=== PATIENT | female | born 1990 | race Caucasian/White ===

== ENCOUNTER 2018-05-31 23:07 | Emergency (ER) | payer OTHER ==
[~2018-05-31] VITALS: Ht 157.5 cm; Wt 85.8 kg
[~2018-05-31 23:07] MED LIST: AMOX500C2 PO; CETI10CA PO; FLUT16SP17 NASAL; IBUP800T48 PO
[2018-05-31 23:53] VITALS: Ht 157.5 cm; Wt 85.8 kg
--- NOTE | 2018-06-01 01:56 | ERD ---
ER Documentation Chief Complaint Chief Complaint Pt reports she cut L index finger at 1700 HPI 28-year-old female, right-handed, presents the emergency department, complaining of pain and active bleeding of the left index finger after sustaining an accidental self-inflicted laceration while cooking. The patient denies distal weakness, numbness or tingling. Tetanus vaccine up-to-date. ROS All systems reviewed and are negative except as per history of present illness. Medications Home Meds Active Scripts Ibuprofen* (Motrin*) 400 Mg Tab, 400 MG PO Q8, #12 TAB Prov:SAHRA CONROY MD 06/01/18 Cephalexin* (Keflex*) 500 Mg Capsule, 500 MG PO TID for 5 Days, CAP Prov:SAHRA CONROY MD 06/01/18 Cetirizine Hcl* (Zyrtec*) 10 Mg Capsule, 10 MG PO DAILY for seasonal allergies, #10 TAB.CHEW Prov:OLEG MORALES NP 05/02/18 Fluticasone Propionate* (Fluticasone Propionate* Nasal) 50 Mcg/[place] - 16 Gm [place].susp, 2 SPRAYS NASAL DAILY, #1 BOTTLE TO EACH NOSTRIL Prov:OLEG MORALES V CLOTH DOFFER 05/02/18 Ibuprofen* (Motrin*) 800 Mg Tab, 800 MG PO Q8 PRN for fever/pain, #30 TAB Prov:OLEG MORALES V CLOTH DOFFER 05/02/18 Amoxicillin* (Amoxicillin*) 500 Mg Cap, 500 MG PO TID for 10 Days, CAP Prov:OLEG MORALES NP 05/02/18 Allergies Allergies: Coded Allergies: No Known Allergy (Unverified , 05/02/18) PMhx/Soc History of Surgery: Yes Anesthesia Reaction: No Hx Neurological Disorder: No Hx Respiratory Disorders: Yes Hx Cardiac Disorders: No Hx Psychiatric Problems: No Hx Miscellaneous Medical Probl: Yes (nasal problem ) Hx Alcohol Use: No Hx Substance Use: No Hx Tobacco Use: No Smoking Status: Never smoker FmHx Family History: No diabetes, No coronary disease Physical Exam Vitals Vital Signs Date Temp Pulse Resp B/P (MAP) Pulse Ox O2 O2 Flow FiO2 Time Delivery Rate 05/31/18 98.3 63 16 112/66 100 23:53 (81) Physical Exam Const: No acute distress Head: Atraumatic Eyes: Normal Conjunctiva ENT: Normal External Ears, Nose and Mouth. Neck: Full range of motion. No meningismus. Resp: Clear to auscultation bilaterally Cardio: Regular rate and rhythm, no murmurs Abd: Soft, non tender, non distended. Normal bowel sounds Skin: Left index with a 1 cm laceration of the distal phalanx. Back: No midline or flank tenderness Ext: No cyanosis, or edema Neur: Awake and alert Psych: Normal Mood and Affect Procedures/MDM Vital signs stable, low suspicion for tendon injury, open fracture, foreign body. Neurovascular exam intact. Procedure: Laceration repair The procedure was explained and consent obtained. Anesthesia: none Location: Left index Tendon/Joint/Nerves: No injury Foreign body: None detected after copious irrigation and exploration Technique: Tissue adhesive Complexity: No subcutaneous sutures/mucosal repair/edge excision Post Closure Length: 1 cm The patient tolerated the procedure well without complications. clinical impression and possible complications like infection and a scar where discussed with the the patient who agree with management. The patient is stable to be treated outpatient and will be discharged home with a Rx for Tylenol, some side effects of prescribed medications (headache, rash, nausea, vomiting, diarrhea, interactions with other medications) were reviewed. The patient was instructed to follow up with the primary care provider in the next 48h. If symptoms persist, worsen or new symptoms develop, then patient should return to the ED immediately. Instructions explained and given directly by me to the patient with acknowledgment and demonstrated understanding. Disclaimer: Inadvertent spelling and grammatical errors are likely due to EHR/dictation software use and do not reflect on the overall quality of patient care. Also, please note that the electronic time recorded on this note does not necessarily reflect the actual time of the patient encounter. Departure Diagnosis: Primary Impression: Laceration of index finger of left hand without complication Condition: Stable Additional Instructions: Thank you very much for allowing us to participate in your care. Your health and safety is our top priority at [facility]. Call your primary care doctor TOMORROW for an appointment during the next 2-4 days and bring all the information and medications prescribed. Have prescriptions filled and follow precisely the directions on the label. If the symptoms get worse and your provider is unavailable, return to the Emergency Department immediately. SAHRA CONROY MD Jun 01, 2018 01:56
[2018-06-01] MEDS ORDERED: IBUP-1561 PO (01:57)
[2018-06-01] MEDS ORDERED: CEPH-443 PO (01:57)
[2018-06-01 02:09] VITALS: BP 100/65; PULSE 68; RESP 18
== END 2018-06-01 02:11 | disposition home or self-care (01) ==
LOC: FTE 23:07
DX: S61.211A Laceration without foreign body of left index finger without damage to nail, initial encounter (principal); X83.8XXA Intentional self-harm by other specified means, initial encounter; Y92.9 Unspecified place or not applicable
CPT/HCPCS: 12001; Z7502

== ENCOUNTER 2018-08-29 14:47 | Inpatient (IN) | payer OTHER ==
[~2018-08-29] VITALS: Ht 154.9 cm; Wt 93.1 kg
[2018-08-29] VITALS (14 sets, daily range): BP systolic 108–122; BP diastolic 64–72; PULSE 50–59; RESP 13–24
[~2018-08-29 14:47] MED LIST changes: +CEPH-443 PO; +IBUP-1561 PO
[2018-08-29] MEDS ORDERED: KETOROLAC 15 MG INJ IV STA (15:59)
[2018-08-29] MEDS ORDERED: SOD CHLORIDE 0.9% 1,000 ML IV STA (15:59)
[2018-08-29] MEDS ORDERED: ONDANSETRON 4 MG INJ IV STA (15:59)
[2018-08-29] MEDS ORDERED: SOD CHLORIDE 0.9% 100 ML ONE (16:56)
[2018-08-29] MEDS ORDERED: IOHEXOL 300MG/ML 150 ML BTL ONE (16:56)
[2018-08-29] MEDS ORDERED: morphine 2 MG INJ IV STA (18:21)
[2018-08-29] MEDS ORDERED: SOD CHLORIDE 0.9% 1,000 ML IV SCH (18:27)
[2018-08-29] MEDS ORDERED: PIPER-TAZO 3.375 GM IV (PMX) 100 ML IVPB ONE (18:30)
[2018-08-29] MEDS ORDERED: NACL 0.9% 3 ML SYG IV SCH (18:30)
[2018-08-29] MEDS ORDERED: morphine 2 MG INJ IV PRN (18:30)
[2018-08-29] MEDS ORDERED: ONDANSETRON 4 MG INJ IV PRN ×3 (18:30→22:30)
--- NOTE | 2018-08-29 18:43 | HP ---
Date/Time of Note Date/Time of Note DATE: 08/29/18 TIME: 18:43 Assessment/Plan VTE Prophylaxis Pharmacological prophylaxis: other Lines/Catheters IV Catheter Type (from Nrs): Saline Lock Assessment/Plan Hospital Course HPI Patient is a female with a past medical history significant for chronic sinusitis and childhood asthma who does not rely on inhalers who presents to [facility] for abdominal pain. Patient states that she had progressively worsening abdominal pain that was located primarily in the right lower quadrant for the past 2 days. Patient stated she came in now because the pain did not get better as she would have expected. Patient otherwise only complains of headache. Patient denies chest pain, shortness of breath, neck pain, dizziness, bowel or bladder dysfunction except for some mild constipation or leg pain. Objective Physical exam General: Patient is laying in bed and answers questions appropriately Mentation: Patient is alert and oriented 4, Head: Normocephalic atraumatic Eyes: EOMI, pupils reactive to light Neck: Supple, nontender, midline Respiratory: Clear to auscultation bilaterally Cardiovascular: regular rate, no obvious murmurs Gastrointestinal: Right lower quadrant tender to palpation, bowel sounds heard. Neurological: Moves all extremities spontaneously Skin: No new skin lesions Assessment and plan Acute appendicitis -IV fluid -General surgeon on board, Dr. Hatfield -IV antibiotic -Anticipate surgery soon History of asthma -Patient has a childhood history of asthma, does not rely on albuterol inhaler, however to optimize patient will have DuoNeb ordered as needed and scheduled for now Chronic sinusitis -Patient chronically on Flonase, of note the patient does not breathe well through the nasal passages so nasal cannula may not be the best choice for her, patient states that she is a mouth breather Disposition -General surgery recommendations appreciated, continue IV fluid and IV antibiotic, keep patient n.p.o. Result Diagram: 08/29/18 1614 08/29/18 1614 Results 24hrs Laboratory Tests Test 08/29/18 16:14 08/29/18 16:18 White Blood Count 9.7 Red Blood Count 4.68 # Hemoglobin 14.2 # Hematocrit 40.5 # Mean Corpuscular Volume 86.5 Mean Corpuscular Hemoglobin 30.3 Mean Corpuscular Hemoglobin Concent 35.1 Red Cell Distribution Width 12.5 Platelet Count 113 L Mean Platelet Volume 13.3 H Immature Granulocytes % 0.200 Neutrophils % 66.8 Lymphocytes % 23.7 Monocytes % 4.3 Eosinophils % 4.5 Basophils % 0.5 Nucleated Red Blood Cells % 0.0 Immature Granulocytes # 0.020 Neutrophils # 6.5 Lymphocytes # 2.3 Monocytes # 0.4 Eosinophils # 0.4 Basophils # 0.1 Nucleated Red Blood Cells # 0.0 Prothrombin Time 12.9 Prothrombin Time Ratio 1.0 INR International Normalized Ratio 0.96 Activated Partial Thromboplast Time 34.6 Urine Color YELLOW Urine Clarity SLIGHTLY CLOUDY A Urine pH 5.0 Urine Specific [place] 1.027 Urine Ketones TRACE A Urine Nitrite NEGATIVE Urine Bilirubin NEGATIVE Urine Urobilinogen 1+ H Urine Leukocyte Esterase NEGATIVE Urine Microscopic RBC 1 Urine Microscopic WBC 2 Urine Squamous Epithelial Cells FEW Urine Bacteria FEW A Urine Mucus FEW A Urine Hemoglobin NEGATIVE Urine Glucose NEGATIVE Urine Total Protein NEGATIVE Sodium Level 143 Potassium Level 4.0 Chloride Level 105 Carbon Dioxide Level 30 Anion Gap 8 Blood Urea Nitrogen 13 Creatinine 0.77 Est Glomerular Filtrat Rate mL/min > 60 Glucose Level 110 Calcium Level 9.6 Total Bilirubin 0.9 Direct Bilirubin 0.00 Indirect Bilirubin 0.9 Aspartate Amino Transf (AST/SGOT) 18 Alanine Aminotransferase (ALT/SGPT) 28 Alkaline Phosphatase 71 Total Protein 7.9 Albumin 4.2 Globulin 3.70 H Albumin/Globulin Ratio 1.13 Lipase 96 POC Beta HCG, Qualitative NEGATIVE HPI/ROS Admit Date/Time Admit Date/Time PMH/Family/Social Past Medical History Medications Current Medications Piperacillin Sod/ Tazobactam Sod 100 ml @ 200 mls/hr Q6 IVPB ; Start 08/30/18 at 00:00 Sodium Chloride 1,000 ml @ 100 mls/hr Q10H IV ; Start 08/29/18 at 18:27 IV Flush (NS 3 ml) 3 ml PER PROTOCOL IV ; Start 08/29/18 at 18:30 Ondansetron HCl (Zofran Inj) 4 mg Q6H PRN IV NAUSEA/VOMITING; Start 08/29/18 at 18:30 Morphine Sulfate (morphine) 2 mg Q4H PRN IV .PAIN 7-10; Start 08/29/18 at 18:30 Famotidine (Pepcid Iv) 20 mg Q12 IV ; Start 08/29/18 at 21:00 Albuterol/ Ipratropium (Duoneb) 3 ml Q6HWA RESP THERAPY N ; Start 08/29/18 at 20:00; Status UNV Albuterol/ Ipratropium (Duoneb) 3 ml Q2H RESP THERAPY PRN HHN shortness of breath; Start 08/29/18 at 19:00; Status UNV Fluticasone Propionate (Flonase 0.05% Nasal) 1 spray BID NASAL ; Start 08/29/18 at 21:00; Status UNV Coded Allergies: No Known Allergy (Unverified , 05/02/18) Social History Smoking Status: Never smoker Exam/Review of Systems Vital Signs Vitals Vital Signs Date Temp Pulse Resp B/P (MAP) Pulse Ox O2 O2 Flow FiO2 Time Delivery Rate 08/29/18 97.9 88 20 119/62 98 14:52 (81) THU TOWNSEND Aug 29, 2018 18:43
[2018-08-29] MEDS ORDERED: ALBUTEROL/IPRATROPIUM (NEB) 3 ML AMP HHN PRN (19:00)
[2018-08-29] MEDS ORDERED: ALBUTEROL/IPRATROPIUM (NEB) 3 ML AMP HHN SCH (20:00)
--- NOTE | 2018-08-29 20:07 | CONS ---
Assessment/Plan Assessment/Plan Assessment/Plan (Daily) acute appendicitis no sign of rupture NPO , IV fluids , IV antibiotics Lap Appy , risks ,details of procedure discussed with patient . including possible infection , bleeding , anesthesia issues , Patient wishes to proceed . OR called Consultation Date/Type/Reason Admit Date/Time Date of Consultation: Aug 29, 2018 Type of Consult surgical consult Reason for Consultation abdominal pain , suspicious for appendicitis Date/Time of Note DATE: 08/29/18 TIME: 19:58 Hx of Present Illness patient with past history of Asthma , presented to ER with worsening abdominal pain , migrated to the right right lower quadrant . Patient denies any similar episodes. Pain started two days ago and got worse .Denies other issues except low platelets during delivery . No problems with bleeding . Past Medical History Home Meds Active Scripts Ibuprofen* (Motrin*) 400 Mg Tab, 400 MG PO Q8, #12 TAB Prov:SAHRA CONROY MD 06/01/18 Cephalexin* (Keflex*) 500 Mg Capsule, 500 MG PO TID for 5 Days, CAP Prov:SAHRA CONROY MD 06/01/18 Cetirizine Hcl* (Zyrtec*) 10 Mg Capsule, 10 MG PO DAILY for seasonal allergies, #10 TAB.CHEW Prov:OLEG MORALES NP 05/02/18 Fluticasone Propionate* (Fluticasone Propionate* Nasal) 50 Mcg/[place] - 16 Gm [place].susp, 2 SPRAYS NASAL DAILY, #1 BOTTLE TO EACH NOSTRIL Prov:LOEG MORALES NP 05/02/18 Ibuprofen* (Motrin*) 800 Mg Tab, 800 MG PO Q8 PRN for fever/pain, #30 TAB Prov:OLEG MORALES NP 05/02/18 Amoxicillin* (Amoxicillin*) 500 Mg Cap, 500 MG PO TID for 10 Days, CAP Prov:OLEG MORALES NP 05/02/18 Medications Current Medications Piperacillin Sod/ Tazobactam Sod 100 ml @ 200 mls/hr Q6 IVPB ; Start 08/30/18 at 00:00 Sodium Chloride 1,000 ml @ 100 mls/hr Q10H IV Last administered on 08/29/18at 19:28; Admin Dose 100 MLS/HR; Start 08/29/18 at 18:27 IV Flush (NS 3 ml) 3 ml PER PROTOCOL IV ; Start 08/29/18 at 18:30 Ondansetron HCl (Zofran Inj) 4 mg Q6H PRN IV NAUSEA/VOMITING; Start 08/29/18 at 18:30 Morphine Sulfate (morphine) 2 mg Q4H PRN IV .PAIN 7-10; Start 08/29/18 at 18:30 Famotidine (Pepcid Iv) 20 mg Q12 IV ; Start 08/29/18 at 21:00 Albuterol/ Ipratropium (Duoneb) 3 ml Q6HWA RESP THERAPY HHN ; Start 08/29/18 at 20:00 Albuterol/ Ipratropium (Duoneb) 3 ml Q2H RESP THERAPY PRN HHN shortness of breath; Start 08/29/18 at 19:00 Fluticasone Propionate (Flonase 0.05% Nasal) 1 spray BID NASAL ; Start 08/29/18 at 21:00 Allergies: Coded Allergies: No Known Allergy (Unverified , 05/02/18) Social History Smoking Status: Current every day smoker Exam/Review of Systems Exam Vitals Vital Signs Date Temp Pulse Resp B/P (MAP) Pulse Ox O2 O2 Flow FiO2 Time Delivery Rate 08/29/18 98.5 71 16 119/68 98 Room Air 19:01 (85) Exam Awake Lungs Clear Cor Reg rate , normal S1S2 Abd soft , tender RLQ , nondistended . Results Result Diagram: 08/29/18 1614 08/29/18 1614 Results 24hrs Laboratory Tests Test 08/29/18 16:14 08/29/18 16:18 White Blood Count 9.7 Red Blood Count 4.68 # Hemoglobin 14.2 # Hematocrit 40.5 # Mean Corpuscular Volume 86.5 Mean Corpuscular Hemoglobin 30.3 Mean Corpuscular Hemoglobin Concent 35.1 Red Cell Distribution Width 12.5 Platelet Count 113 L Mean Platelet Volume 13.3 H Immature Granulocytes % 0.200 Neutrophils % 66.8 Lymphocytes % 23.7 Monocytes % 4.3 Eosinophils % 4.5 Basophils % 0.5 Nucleated Red Blood Cells % 0.0 Immature Granulocytes # 0.020 Neutrophils # 6.5 Lymphocytes # 2.3 Monocytes # 0.4 Eosinophils # 0.4 Basophils # 0.1 Nucleated Red Blood Cells # 0.0 Prothrombin Time 12.9 Prothrombin Time Ratio 1.0 INR International Normalized Ratio 0.96 Activated Partial Thromboplast Time 34.6 Urine Color YELLOW Urine Clarity SLIGHTLY CLOUDY A Urine pH 5.0 Urine Specific [place] 1.027 Urine Ketones TRACE A Urine Nitrite NEGATIVE Urine Bilirubin NEGATIVE Urine Urobilinogen 1+ H Urine Leukocyte Esterase NEGATIVE Urine Microscopic RBC 1 Urine Microscopic WBC 2 Urine Squamous Epithelial Cells FEW Urine Bacteria FEW A Urine Mucus FEW A Urine Hemoglobin NEGATIVE Urine Glucose NEGATIVE Urine Total Protein NEGATIVE Sodium Level 143 Potassium Level 4.0 Chloride Level 105 Carbon Dioxide Level 30 Anion Gap 8 Blood Urea Nitrogen 13 Creatinine 0.77 Est Glomerular Filtrat Rate mL/min > 60 Glucose Level 110 Calcium Level 9.6 Total Bilirubin 0.9 Direct Bilirubin 0.00 Indirect Bilirubin 0.9 Aspartate Amino Transf (AST/SGOT) 18 Alanine Aminotransferase (ALT/SGPT) 28 Alkaline Phosphatase 71 Total Protein 7.9 Albumin 4.2 Globulin 3.70 H Albumin/Globulin Ratio 1.13 Lipase 96 POC Beta HCG, Qualitative NEGATIVE Medications Medication Current Medications Piperacillin Sod/ Tazobactam Sod 100 ml @ 200 mls/hr Q6 IVPB ; Start 08/30/18 at 00:00 Sodium Chloride 1,000 ml @ 100 mls/hr Q10H IV Last administered on 08/29/18at 19:28; Admin Dose 100 MLS/HR; Start 08/29/18 at 18:27 IV Flush (NS 3 ml) 3 ml PER PROTOCOL IV ; Start 08/29/18 at 18:30 Ondansetron HCl (Zofran Inj) 4 mg Q6H PRN IV NAUSEA/VOMITING; Start 08/29/18 at 18:30 Morphine Sulfate (morphine) 2 mg Q4H PRN IV .PAIN 7-10; Start 08/29/18 at 18:30 Famotidine (Pepcid Iv) 20 mg Q12 IV ; Start 08/29/18 at 21:00 Albuterol/ Ipratropium (Duoneb) 3 ml Q6HWA RESP THERAPY HHN ; Start 08/29/18 at 20:00 Albuterol/ Ipratropium (Duoneb) 3 ml Q2H RESP THERAPY PRN HHN shortness of breath; Start 08/29/18 at 19:00 Fluticasone Propionate (Flonase 0.05% Nasal) 1 spray BID NASAL ; Start 08/29/18 at 21:00 RAFI GMÓEZ MD Aug 29, 2018 20:07
[2018-08-29] MEDS ORDERED: BUPIVACAINE 0.5%/EPI (SDV) 30 ML INJ ONE (20:36)
[2018-08-29] MEDS ORDERED: BUPIVACAINE 0.5% (SDV) 30 ML INJ ONE (20:36)
--- NOTE | 2018-08-29 20:43 | PREAC ---
Date/Time of Note Date/Time of Note DATE: 08/29/18 TIME: 20:40 Anesthesia Eval and Record Evaluation Time Pre-Procedure Interview DATE: 08/29/18 TIME: 20:40 Age 28 Sex female NPO: 8 hrs Preoperative diagnosis appencdicitis Planned procedure Lap appy Past Medical History Past Medical History: Includes Pulm: Asthma GI: Obesity Surgery & Anesthesia Issues No known issue Meds Anticoagulation: No Beta Anil within 24 hr: No Reason Beta Anil not given: Pt. not on B-Anil Active Scripts Ibuprofen* (Motrin*) 400 Mg Tab, 400 MG PO Q8, #12 TAB Prov:SAHRA CONROY MD 06/01/18 Cephalexin* (Keflex*) 500 Mg Capsule, 500 MG PO TID for 5 Days, CAP Prov:SAHRA CONROY MD 06/01/18 Cetirizine Hcl* (Zyrtec*) 10 Mg Capsule, 10 MG PO DAILY for seasonal allergies, #10 TAB.CHEW Prov:OLEG MORALES NP 05/02/18 Fluticasone Propionate* (Fluticasone Propionate* Nasal) 50 Mcg/[place] - 16 Gm [place].susp, 2 SPRAYS NASAL DAILY, #1 BOTTLE TO EACH NOSTRIL Prov:OLEG MORALES NP 05/02/18 Ibuprofen* (Motrin*) 800 Mg Tab, 800 MG PO Q8 PRN for fever/pain, #30 TAB Prov:OLEG MORALES NP 05/02/18 Amoxicillin* (Amoxicillin*) 500 Mg Cap, 500 MG PO TID for 10 Days, CAP Prov:OLEG MORALES NP 05/02/18 Current Medications Piperacillin Sod/ Tazobactam Sod 100 ml @ 200 mls/hr Q6 IVPB ; Start 08/30/18 at 00:00 Sodium Chloride 1,000 ml @ 100 mls/hr Q10H IV Last administered on 08/29/18at 19:28; Admin Dose 100 MLS/HR; Start 08/29/18 at 18:27 IV Flush (NS 3 ml) 3 ml PER PROTOCOL IV ; Start 08/29/18 at 18:30 Ondansetron HCl (Zofran Inj) 4 mg Q6H PRN IV NAUSEA/VOMITING; Start 08/29/18 at 18:30 Morphine Sulfate (morphine) 2 mg Q4H PRN IV .PAIN 7-10; Start 08/29/18 at 18:30 Famotidine (Pepcid Iv) 20 mg Q12 IV ; Start 08/29/18 at 21:00 Albuterol/ Ipratropium (Duoneb) 3 ml Q6HWA RESP THERAPY HHN ; Start 08/29/18 at 20:00 Albuterol/ Ipratropium (Duoneb) 3 ml Q2H RESP THERAPY PRN HHN shortness of breath; Start 08/29/18 at 19:00 Fluticasone Propionate (Flonase 0.05% Nasal) 1 spray BID NASAL ; Start 08/29/18 at 21:00 Meds reviewed: Yes Allergies Coded Allergies: No Known Allergy (Unverified , 05/02/18) Allergies Reviewed: Yes Labs/Studies Labs Reviewed: Reviewed by anesthesiologist Result Diagram: 08/29/18 1614 08/29/18 1614 Laboratory Tests 08/29/18 16:14 test: Negative Studies: ECG (n/a), CXR (n/a) Pre-procedure Exam Last vitals Vital Signs Date Temp Pulse Resp B/P (MAP) Pulse Ox O2 O2 Flow FiO2 Time Delivery Rate 08/29/18 97.8 65 16 116/63 98 Room Air 20:22 (80) Airway: Adequate mouth opening Mallampati: Mallampati I Teeth: Normal Lung: Normal Heart: Normal ASA Physical Status ASA physical status: 2 Emergency: None Planned Anesthetic General/MAC: ETT Nerve block: TAP (bilateral) Planned Pain Management Single shot nerve block, Parenteral pain med Pre-operative Attestations Prior to commencing anesthesia and surgery, the patient was re-evaluated, there was verification of: *The patient's identity *The results of appropriate recent lab work and preoperative vital signs *The above evaluation not changing prior to induction *Anesthetic plan, risk benefits, alternative and complications discussed with patient/family; questions answered; patient/family understands, accepts and wishes to proceed. ERIN QUIJANO MD Aug 29, 2018 20:43
[2018-08-29] MEDS ORDERED: METOCLOPRAMIDE 10 MG INJ ONE (20:50)
[2018-08-29] MEDS ORDERED: SUCCINYLCHOLINE CHLORIDE 100 MG/5 ML SYG IV ONE (20:50)
[2018-08-29] MEDS ORDERED: PROPOFOL 20 ML ONE (20:50)
[2018-08-29] MEDS ORDERED: ROPIVACAINE 0.5 % 30 ML VIAL ONE (20:50)
[2018-08-29] MEDS ORDERED: MIDAZOLAM 1 MG/ML 2 ML INJ ONE (20:50)
[2018-08-29] MEDS ORDERED: ONDANSETRON 4 MG INJ ONE (20:50)
[2018-08-29] MEDS ORDERED: KETOROLAC 30 MG INJ IV PRN (21:00)
[2018-08-29] MEDS ORDERED: DESFLURANE 15 MIN ONE (21:00)
[2018-08-29] MEDS ORDERED: hydrALAzine 20 MG INJ IV PRN (21:00)
[2018-08-29] MEDS ORDERED: CEFAZOLIN 1 GM INJ ONE (21:00)
[2018-08-29] MEDS ORDERED: MEPERIDINE 25 MG INJ IV PRN (21:00)
[2018-08-29] MEDS ORDERED: HYDROmorphONE 1 MG/5 ML IV SYRINGE IV PRN ×3 (21:00)
[2018-08-29] MEDS ORDERED: FENTAnyl 50 MCG/ML VIAL IV PRN ×3 (21:00)
[2018-08-29] MEDS ORDERED: DIPHENHYDRAMINE 50 MG INJ IV PRN (21:00)
[2018-08-29] MEDS ORDERED: OXYCODONE/ACETAMINOPHEN (5/325) TAB PO PRN ×2 (21:00)
[2018-08-29] MEDS ORDERED: LABETALOL HCL 20MG INJ IV PRN (21:00)
--- NOTE | 2018-08-29 22:01 | OPR ---
Date/Time of Note Date/Time of Note DATE: 08/29/18 TIME: 21:56 Operative Report Procedure Date: Aug 29, 2018 Preoperative Diagnosis Acute appendicitis Postoperative Diagnosis Same Operation/Procedure Performed Laparoscopic appendectomy Surgeon see signature line Cage Operator None Anesthesia Type: general Anesthesiologist: ERIN QUIJANO MD Estimated Blood Loss: minimal Transfusion none Specimen Appendix Grafts/Implants none Tubes/Drains None Complications none Pt Condition Post Procedure: stable Disposition: PACU Indications Patient presented to the emergency room with abdominal pain worsening over s everal hours. CAT scan revealed dilated appendix with inflammatory changes consistent with acute appendicitis. I was called for surgical consultation diagnosis of acute appendicitis was confirmed recommendation for laparoscopic appendectomy . Risk benefits and alternatives were discussed patient agreed to proceed Procedure Description She brought to the operating placed in supine position general she is administered with intubation patient was prepped draped standard sterile fashion a tap block was administered by anesthesia prior to surgery. Timeout was completed. Varies needle was used left upper quadrant Callahan's point insufflation delivered to maintain pneumoperitoneum 15 is working throughout the procedure course of Marcaine was used to infiltrate the trocar sites. Small stab incision was made above the umbilicus and a 5 mm trocar was inserted under direct visualization with a 30 degree 5 [place] laparoscope the Veress needle was removed. An infraumbilical incision was made and a 12 mm trocar was inserted there was an adhesive band noted just below this which was taken with monopolar cautery a suprapubic 5 mm trocar was inserted next the patient was placed in slight Trendelenburg position right side up. The cecum was identified right away the appendix was noted to be markedly thickened and inflamed the base appeared to be normal diameter. A window was made in the mesoappendix with a [place] dissector. An [place] vascular cartridge 35mm was used to divide the appendix at the base and a second application on the mesoappendix there was some mild bleeding at the staple line which was controlled with monopolar cautery. Small amount of blood was observed with a Ray-Nilesh. A specimen Endo Catch bag was inserted through the 12 [place] port and the appendix placed and this was brought through the port trocar was then reinserted final inspection showed good hemostasis the sponge was removed the pneumoperitoneum was allowed to escape the trochars were removed skin incision closed with 4-0 Monocryl and Dermabond for dressing. Patient was explained the operative brought recovery in stable condition. Counts were correct x2 RAFI GÓMEZ MD Aug 29, 2018 22:01
[2018-08-29] MEDS ORDERED: GLYCOPYRROLATE 0.4 MG INJ ONE (22:21)
[2018-08-29] MEDS ORDERED: NEOSTIGMINE 3 MG/3 ML SYRINGE ONE (22:21)
[2018-08-29] MEDS ORDERED: HYDROmorphONE 0.5 MG/0.5 ML SYG IV PRN (22:30)
[2018-08-29] MEDS ORDERED: ACETAMINOPHEN 325 MG TAB PO PRN (22:30)
[2018-08-29] MEDS ORDERED: IBUPROFEN 600 MG TAB PO PRN (22:30)
--- NOTE | 2018-08-29 22:33 | PAC ---
Date/Time of Note Date/Time of Note DATE: 08/29/18 TIME: 22:33 Post-Anesthesia Notes Post-Anesthesia Note Last documented vital signs Vital Signs Date Temp Pulse Resp B/P (MAP) Pulse Ox O2 O2 Flow FiO2 Time Delivery Rate 08/29/18 98.2 54 18 116/67 98 Nasal 22:27 (83) Cannula 08/29/18 2.0 22:22 08/29/18 98.2 22:09 Activity: WNL Respiratory function: WNL Cardiovascular function: WNL Mental status: Baseline Pain reasonably controlled: Yes Hydration appropriate: Yes Nausea/Vomiting absent: No ERIN QUIJANO MD Aug 29, 2018 22:33
[2018-08-30] VITALS: Ht 154.9 cm; Wt 93.1 kg
[2018-08-30 00:14] VITALS: BP 118/58; PULSE 61; RESP 17
[2018-08-30] MEDS: FAMOTIDINE 20 MG INJ IV SCH ×2 (00:14→09:00)
[2018-08-30] MEDS: PIPER-TAZO 3.375 GM IV (PMX) 100 ML IVPB SCH ×3 (00:29→12:38)
[2018-08-30] MEDS: D5-NS + KCL 20 MEQ 1,000 ML IV SCH ×2 (00:53→08:01)
[2018-08-30] MEDS: FLUTICASONE 0.05% 16 GM NAS SPRAY NASAL SCH ×3 (00:53→20:45)
[2018-08-30 02:20] VITALS: BP 91/54; PULSE 56; RESP 18
[2018-08-30] MEDS: ENOXAPARIN 40 MG/0.4 ML SYG SC SCH (07:04)
[2018-08-30 07:40] VITALS: BP 112/68; PULSE 55; RESP 16
[2018-08-30 14:28] VITALS: BP 100/57; PULSE 56; RESP 16
--- NOTE | 2018-08-30 15:15 | PN ---
Date/Time of Note Date/Time of Note DATE: 08/30/18 TIME: 15:13 Objective Vitals Vital Signs Date Temp Pulse Resp B/P (MAP) Pulse Ox O2 O2 Flow FiO2 Time Delivery Rate 08/30/18 98.3 56 16 100/57 98 Room Air 14:28 (71) 08/29/18 2.0 22:22 Intake and Output 08/29/18 08/29/18 08/30/18 1515:00 23:00 07:00 IntakeIntake Total 2100 ml 700 ml OutputOutput Total 5 ml BalanceBalance 2095 ml 700 ml Results Result Diagram: 08/30/18 0508/30/18 0520 Medications Medications Current Medications Piperacillin Sod/ Tazobactam Sod 100 ml @ 200 mls/hr Q6 IVPB Last administered on 08/30/18at 12:38; Admin Dose 200 MLS/HR; Start 08/30/18 at 00:00 IV Flush (NS 3 ml) 3 ml PER PROTOCOL IV ; Start 08/29/18 at 18:30 Ondansetron HCl (Zofran Inj) 4 mg Q6H PRN IV NAUSEA/VOMITING; Start 08/29/18 at 18:30 Morphine Sulfate (morphine) 2 mg Q4H PRN IV .PAIN 7-10; Start 08/29/18 at 18:30 Famotidine (Pepcid Iv) 20 mg Q12 IV Last administered on 08/30/18at 09:00; Admin Dose 20 MG; Start 08/29/18 at 21:00 Albuterol/ Ipratropium (Duoneb) 3 ml Q6HWA RESP THERAPY HHN ; Start 08/29/18 at 20:00 Albuterol/ Ipratropium (Duoneb) 3 ml Q2H RESP THERAPY PRN HHN shortness of breath; Start 08/29/18 at 19:00 Fluticasone Propionate (Flonase 0.05% Nasal) 1 spray BID NASAL Last administered on 08/30/18at 09:01; Admin Dose 1 SPRAY; Start 08/29/18 at 21:00 Ondansetron HCl (Zofran Inj) 4 mg Q6H PRN IV NAUSEA AND/OR VOMITING; Start 08/29/18 at 22:30 Acetaminophen (Tylenol Tab) 650 mg Q6H PRN PO PAIN LEVEL 1-3 OR FEVER; Start 08/29/18 at 22:30 Ibuprofen (Motrin) 600 mg Q6H PRN PO PAIN LEVEL 1-3; Start 08/29/18 at 22:30 Hydromorphone HCl (Dilaudid) 0.5 mg Q4H PRN IV PAIN LEVEL 8-10 Last administered on 08/30/18at 08:51; Admin Dose 0.5 MG; Start 08/29/18 at 22:30 Enoxaparin Sodium (Lovenox) 40 mg DAILY@07 SC Last administered on 08/30/18at 07:04; Admin Dose 40 MG; Start 08/30/18 at 07:00 VTE Prophylaxis Risk score (from [facility] [place]0 risk: 9 SCD applied (from [facility] [place]): Yes Lines/Catheters IV Catheter Type: Lu in Place: No Assessment/Plan Hospital Course Subjective Patient still having significant abdominal pain, did not pass gas, not able to ambulate well Objective Physical exam General: Patient is laying in bed and answers questions appropriately Mentation: Patient is alert and oriented 4, Head: Normocephalic atraumatic Eyes: EOMI, pupils reactive to light Neck: Supple, nontender, midline Respiratory: Clear to auscultation bilaterally Cardiovascular: regular rate, no obvious murmurs Gastrointestinal: Moderately generally tender to palpation, bowel sounds heard. Neurological: Moves all extremities spontaneously Skin: No new skin lesions Assessment and plan Acute appendicitis, status post laparoscopic appendectomy -IV fluid -General surgeon on board, Dr. Hatfield -IV antibiotic switched to p.o. for prevention secondary skin infection History of asthma -Patient has a childhood history of asthma, does not rely on albuterol inhaler, use as needed Chronic sinusitis -Patient chronically on Flonase, of note the patient does not breathe well through the nasal passages so nasal cannula may not be the best choice for her, patient states that she is a mouth breather Disposition -Ambulate patient, discharge when able to tolerate p.o. and take care of self better, hopefully tomorrow THU TOWNSEND Aug 30, 2018 15:15
[2018-08-30] MEDS: HYDROCODONE/APAP (5/325) TAB PO PRN ×2 (17:22→21:43)
[2018-08-30 19:57] VITALS: BP 99/60; PULSE 68; RESP 17
[2018-08-30] MEDS: CEPHALEXIN 500 MG CAP PO SCH (21:42)
[2018-08-31] MEDS: CEPHALEXIN 500 MG CAP PO SCH ×2 (05:59→13:20)
[2018-08-31] MEDS: ENOXAPARIN 40 MG/0.4 ML SYG SC SCH (06:24)
[2018-08-31 07:51] VITALS: BP 96/54; PULSE 59; RESP 17
[2018-08-31] MEDS: FLUTICASONE 0.05% 16 GM NAS SPRAY NASAL SCH (08:37)
[2018-08-31] MEDS: HYDROCODONE/APAP (5/325) TAB PO PRN ×2 (08:40→13:20)
[2018-08-31 10:00] VITALS: BP 102/58; PULSE 62
--- NOTE | 2018-08-31 10:13 | PDOCDIS ---
Discharge Instructions CONDITION [id number] Patient Condition: [id number] Stable FOLLOW UP/APPOINTMENTS Follow-up Plan 1. Please follow-up with Dr. Aaron Hatfield, general surgery for postoperative follow-up for your surgery. 2. Please follow-up with your primary care provider for continued management of your other issues including childhood asthma and chronic thrombocytopenia (low platelets). THU TOWNSEND Aug 31, 2018 10:13
[2018-08-31] MEDS ORDERED: HYDR-3601 PO (10:16)
[2018-08-31] MEDS ORDERED: CEPH500C PO (10:16)
--- NOTE | 2018-08-31 10:19 | DS ---
Date/Time of Note Date/Time of Note DATE: 08/31/18 TIME: 10:19 Discharge Summary Admission/Discharge Info Admit Date/Time Aug 29, 2018 at 18:25 Discharge Date/Time Patient Condition: Stable Hospital Course Patient is a female with a past medical history significant for chronic sinusitis and chronic thrombocytopenia who presents to [facility] for abdominal pain. Patient was diagnosed with acute appendicitis and taken for laparoscopic appendectomy by general surgery. Patient had uneventful surgery however did have some significant postoperative pain and was monitored overnight. Patient is now doing much better, had bowel movement and pain is significantly improving. Patient will not be discharged to follow-up with general surgeon within 2 weeks and her primary care provider for all other needs. Patient will be discharged today. Discharge diagnosis Acute appendicitis, resolved status post laparoscopic appendectomy History of asthma Chronic sinusitis Chronic thrombocytopenia Home Meds Active Scripts Hydrocodone Bit-Acetaminophen (Hydrocodone Bit-APAP) 5-325MG Tablet, 1 TAB PO Q12 PRN for MODERATE PAIN LEVEL 4-6 for 2 Days, #4 TAB Prov:THU TOWNSEND 08/31/18 Cephalexin* (Cephalexin*) 500 Mg Capsule, 500 MG PO Q8 for 3 Days, #9 CAP Prov:THU TOWNSEND 08/31/18 Fluticasone Propionate* (Fluticasone Propionate* Nasal) 50 Mcg/[place] - 16 Gm [place].susp, 2 SPRAYS NASAL DAILY, #1 BOTTLE TO EACH NOSTRIL Prov:OLEG MORALES NP 05/02/18 Discontinued Scripts Ibuprofen* (Motrin*) 400 Mg Tab, 400 MG PO Q8, #12 TAB Prov:SAHRA CONROY MD 06/01/18 Cephalexin* (Keflex*) 500 Mg Capsule, 500 MG PO TID for 5 Days, CAP Prov:SAHRA CONROY MD 06/01/18 Cetirizine Hcl* (Zyrtec*) 10 Mg Capsule, 10 MG PO DAILY for seasonal allergies, #10 TAB.CHEW Prov:OLEG MORALES NP 05/02/18 Ibuprofen* (Motrin*) 800 Mg Tab, 800 MG PO Q8 PRN for fever/pain, #30 TAB Prov:OLEG MORALES NP 05/02/18 Amoxicillin* (Amoxicillin*) 500 Mg Cap, 500 MG PO TID for 10 Days, CAP Prov:OLEG MORALES Erik BROWN 05/02/18 Follow-up Plan 1. Please follow-up with Dr. Aaron Hatfield, general surgery for postoperative follow-up for your surgery. 2. Please follow-up with your primary care provider for continued management of your other issues including childhood asthma and chronic thrombocytopenia (low platelets). Primary Care Provider Not On Staff Doctor Time spent on discharge: > 30 minutes Pending Labs Laboratory Tests Test 08/31/18 05:13 White Blood Count 6.9 10^3/ul (4.8-10.8) Red Blood Count 4.31 10^6/ul (4.20-5.40) Hemoglobin 12.9 g/dl (12.0-16.0) Hematocrit 37.8 % (37.0-47.0) Mean Corpuscular Volume 87.7 fl (82.0-101.0) Mean Corpuscular Hemoglobin 29.9 pg (29.0-33.0) Mean Corpuscular Hemoglobin Concent 34.1 g/dl (32.0-37.0) Red Cell Distribution Width 12.4 % (11.5-14.5) Platelet Count 111 10^3/UL (140-415) Mean Platelet Volume 13.2 fl (7.4-10.4) Immature Granulocytes % 0.300 % (0.001-0.429) Neutrophils % 48.5 % (39.0-77.0) Lymphocytes % 40.3 % (15.0-51.0) Monocytes % 5.3 % (0.0-11.0) Eosinophils % 4.9 % (0.0-7.0) Basophils % 0.7 % (0.0-2.0) Nucleated Red Blood Cells % 0.0 /100WBC (0.0-0.0) Immature Granulocytes # 0.020 10^3/ul (0.0-0.031) Neutrophils # 3.4 10^3/ul (1.6-7.5) Lymphocytes # 2.8 10^3/ul (0.8-2.9) Monocytes # 0.4 10^3/ul (0.3-0.9) Eosinophils # 0.3 10^3/ul (0.0-0.5) Basophils # 0.1 10^3/ul (0.0-0.1) Nucleated Red Blood Cells # 0.0 10^3/ul (0.0-0.0) Sodium Level 140 mmol/L (135-144) Potassium Level 4.5 mmol/L (3.5-5.1) Chloride Level 108 mmol/L (97-110) Carbon Dioxide Level 28 mmol/L (21-31) Anion Gap 4 (5-13) Blood Urea Nitrogen 9 mg/dl (7-20) Creatinine 0.77 mg/dl (0.44-1.00) Est Glomerular Filtrat Rate mL/min > 60 mL/min (>60) Glucose Level 103 mg/dl (70-220) Calcium Level 8.4 mg/dl (8.4-10.2) Phosphorus Level 3.3 mg/dl (2.5-4.9) Magnesium Level 2.0 mg/dl (1.7-2.5) THU TOWNSEND Aug 31, 2018 10:19
--- NOTE | 2018-09-05 12:48 | ERD ---
ER Documentation Chief Complaint Chief Complaint ABD PAIN FOR 2 DAYS HPI The patient is a 38-year-old female, presenting to the ER because of right lower quadrant abdominal pain for the last 2 days, with constipation, denies similar symptoms previously. She denies fever, chills, neck pain, chest pain, dyspnea, vomiting, dysuria, no aggravating or relieving factor. He smokes socially, denies drinking Past medical history: Asthma Past surgical history: 3 ROS All systems reviewed and are negative except as per history of present illness. Medications Home Meds Active Scripts Hydrocodone Bit-Acetaminophen (Hydrocodone Bit-APAP) 5-325MG Tablet, 1 TAB PO Q12 PRN for MODERATE PAIN LEVEL 4-6 for 2 Days, #4 TAB Prov:THU CASTELLANOS 08/31/18 Cephalexin* (Cephalexin*) 500 Mg Capsule, 500 MG PO Q8 for 3 Days, #9 CAP Prov:THU CASTELLANOS 08/31/18 Fluticasone Propionate* (Fluticasone Propionate* Nasal) 50 Mcg/[place] - 16 Gm [place].susp, 2 SPRAYS NASAL DAILY, #1 BOTTLE TO EACH NOSTRIL Prov:OLEG MORALES NP 05/02/18 Discontinued Scripts Ibuprofen* (Motrin*) 400 Mg Tab, 400 MG PO Q8, #12 TAB Prov:SAHRA CONROY MD 06/01/18 Cephalexin* (Keflex*) 500 Mg Capsule, 500 MG PO TID for 5 Days, CAP Prov:SAHRA CONROY MD 06/01/18 Cetirizine Hcl* (Zyrtec*) 10 Mg Capsule, 10 MG PO DAILY for seasonal allergies, #10 TAB.CHEW Prov:OLEG MORALES NP 05/02/18 Ibuprofen* (Motrin*) 800 Mg Tab, 800 MG PO Q8 PRN for fever/pain, #30 TAB Prov:OLEG MORALES NP 05/02/18 Amoxicillin* (Amoxicillin*) 500 Mg Cap, 500 MG PO TID for 10 Days, CAP Prov:OLEG MORALES [employer] 05/02/18 Allergies Allergies: Coded Allergies: No Known Allergy (Unverified , 05/02/18) PMhx/Soc History of Surgery: Yes ( X3) Anesthesia Reaction: No Hx Neurological Disorder: No Hx Respiratory Disorders: Yes (ASTHMA, SINUSITIS ) Hx Cardiac Disorders: No Hx Psychiatric Problems: No Hx Miscellaneous Medical Probl: No Hx Alcohol Use: No Hx Substance Use: No Hx Tobacco Use: No Smoking Status: Current some day smoker Physical Exam Physical Exam Const: No acute distress. Head: Atraumatic. Eyes: Normal Conjunctiva. ENT: Normal External Ears, Nose and Mouth. Neck: Full range of motion. No meningismus. Resp: Clear to auscultation bilaterally. Cardio: Regular rate and rhythm. Abd: Soft, non distended, normal bowel sounds, moderate right lower quadrant tenderness, no rigidity/rebound/CVA tenderness Skin: No petechiae or rashes. Back: No midline or flank tenderness. Ext: No cyanosis, or edema. Neur: Awake and alert. No focal deficit Psych: Normal Mood and Affect. Results 24 hrs Laboratory Tests Test 08/29/18 16:14 08/29/18 16:18 White Blood Count 9.7 10^3/ul Red Blood Count 4.68 10^6/ul Hemoglobin 14.2 g/dl Hematocrit 40.5 % Mean Corpuscular Volume 86.5 fl Mean Corpuscular Hemoglobin 30.3 pg Mean Corpuscular Hemoglobin Concent 35.1 g/dl Red Cell Distribution Width 12.5 % Platelet Count 113 10^3/UL Mean Platelet Volume 13.3 fl Immature Granulocytes % 0.200 % Neutrophils % 66.8 % Lymphocytes % 23.7 % Monocytes % 4.3 % Eosinophils % 4.5 % Basophils % 0.5 % Nucleated Red Blood Cells % 0.0 /100WBC Immature Granulocytes # 0.020 10^3/ul Neutrophils # 6.5 10^3/ul Lymphocytes # 2.3 10^3/ul Monocytes # 0.4 10^3/ul Eosinophils # 0.4 10^3/ul Basophils # 0.1 10^3/ul Nucleated Red Blood Cells # 0.0 10^3/ul Prothrombin Time 12.9 Sec Prothrombin Time Ratio 1.0 INR International Normalized Ratio 0.96 Activated Partial Thromboplast Time 34.6 Sec Urine Color YELLOW Urine Clarity SLIGHTLY CLOUDY Urine pH 5.0 Urine Specific [place] 1.027 Urine Ketones TRACE mg/dL Urine Nitrite NEGATIVE mg/dL Urine Bilirubin NEGATIVE mg/dL Urine Urobilinogen 1+ mg/dL Urine Leukocyte Esterase NEGATIVE Sujatha/ul Urine Microscopic RBC 1 /HPF Urine Microscopic WBC 2 /HPF Urine Squamous Epithelial Cells FEW /HPF Urine Bacteria FEW /HPF Urine Mucus FEW /HPF Urine Hemoglobin NEGATIVE mg/dL Urine Glucose NEGATIVE mg/dL Urine Total Protein NEGATIVE mg/dl Sodium Level 143 mmol/L Potassium Level 4.0 mmol/L Chloride Level 105 mmol/L Carbon Dioxide Level 30 mmol/L Anion Gap 8 Blood Urea Nitrogen 13 mg/dl Creatinine 0.77 mg/dl Est Glomerular Filtrat Rate mL/min > 60 mL/min Glucose Level 110 mg/dl Calcium Level 9.6 mg/dl Total Bilirubin 0.9 mg/dl Direct Bilirubin 0.00 mg/dl Indirect Bilirubin 0.9 mg/dl Aspartate Amino Transf (AST/SGOT) 18 IU/L Alanine Aminotransferase (ALT/SGPT) 28 IU/L Alkaline Phosphatase 71 IU/L Total Protein 7.9 g/dl Albumin 4.2 g/dl Globulin 3.70 g/dl Albumin/Globulin Ratio 1.13 Lipase 96 U/L POC Beta HCG, Qualitative NEGATIVE Current Medications Medications Dose Sig/Yoan Start Time Status Last (Trade) Ordered Route PRN Stop Time Admin Dose Reason Admin Sodium 1,000 ml @ Q1H STAT 08/29/18 DC 08/29/18 Chloride 1,000 mls/hr IV 15:59 08/29/18 16:21 16:58 Ondansetron 4 mg ONCE STAT 08/29/18 DC 08/29/18 HCl (Zofran IV 15:59 08/29/18 16:21 Inj) 16:00 Ketorolac 15 mg ONCE STAT 08/29/18 DC 08/29/18 Tromethamine IV 15:59 08/29/18 16:25 (Toradol) 16:00 IV Flush 10 ml STK-MED 08/29/18 DC (NS 10 ml) ONCE .ROUTE 16:56 08/29/18 16:57 Sodium 100 ml @ ud STK-MED 08/29/18 DC Chloride ONCE .ROUTE 16:56 08/29/18 16:57 Iohexol 150 ml STK-MED 08/29/18 DC (Omnipaque ONCE .ROUTE 16:56 08/29/18 300mg/ ml) 16:57 Morphine 2 mg ONCE STAT 08/29/18 DC 08/29/18 Sulfate IV 18:21 08/29/18 19:13 (morphine) 18:23 Procedures/MDM [facility] [address] [id number] Radiology Main Line: [phone] DIAGNOSTIC IMAGING REPORT Patient: LOLITA NICOLAS : 1990 Age: 28 Sex: F MR #: [id number] DOS: 08/29/18 1559 Ordering MD: RAFI BENÍTEZ PA-C Location: [facility] Room/Bed: PROCEDURE: CT Abdomen and Pelvis with contrast. CLINICAL INDICATION: Abdominal pain. TECHNIQUE: A CT scan of the abdomen and pelvis was performed with intravenous contrast. The patient was scanned following the uncomplicated intravenous administration of 100 cc of Omnipaque-300. Coronal and sagittal reformatted images were obtained from the axial source images. DICOM images are available. Images were reviewed on a high-resolution PACS workstation. CTDIvol: 17.89 mGy. DLP: 1002.99 mGy-cm. One or more of the following dose reduction techniques were used: - Automated exposure control. - Adjustment of the mA and/or kV according to patient size. - Use of iterative reconstruction technique. COMPARISON: None. FINDINGS: There are mild atelectatic changes in the lower lobes. The liver is enlarged (21.7 cm) and diffusely hypodense, consistent with fatty infiltration. There are stones in the gallbladder. The common bile duct is not dilated. The spleen is not enlarged. No pancreatic lesion is identified and there is no pancreatic ductal dilatation. The adrenal glands are unremarkable. The kidneys are normal in size. There is no perinephric fat stranding. No hydronephrosis is seen. The small and large bowel are normal in caliber. There is no bowel wall thickening. There is a small amount of oral contrast in the colon. The appendix is dilated up to 11 mm in diameter and there are periappendiceal inflammatory changes, consistent with appendicitis. No associated periappendiceal fluid collection or pneumoperitoneum is identified. The appendix lies in the right pelvis, anterior to the right external iliac artery. The urinary bladder is unremarkable. The pelvic organs are within normal limits. There are several mildly prominent right abdominal lymph nodes, probably reactive. There is no ascites. No pneumoperitoneum is seen. There are no arterial calcifications. There are small fat containing umbilical and periumbilical hernias. No suspicious osseous lesion is idenitified. IMPRESSION: Appendicitis. No associated periappendiceal fluid collection or pneumoperitoneum is identified. The appendix lies in the right pelvis, anterior to the right e xternal iliac artery. Cholelithiasis. Hepatomegaly and fatty infiltration of the liver. Small fat-containing umbilical and periumbilical hernias. RPTAT: HTAR .Prabhjot Salmeron MD, MD Date Time Electronically viewed and signed by .Prabhjot Salmeron MD, on 08/29/2018 17:56 .R/ CC: RAFI BENÍTEZ PA-C [id number] MEDICAL MAKING DECISION: The patient is a 28-year-old female, presenting with acute appendicitis, was treated with Zosyn IV, 1 L normal saline, Toradol 15 mg and morphine 2 mg IV for pain, Zofran 4 mg IV for nausea with good response The differential diagnoses considered include but are not limited to cholelithiasis, cholecystitis, choledocholithiasis, cholangitis, pancreatitis, hepatitis, gastritis, peptic ulcer disease, gastric ulcer, cystitis, diverticulitis, partial small bowel obstruction. Consultation: I discussed the patient with the on-call general surgeon Dr. Hatfield at 6:15 PM, who was made aware of the lab, the patient condition and treatment, he accepted the patient consult Departure Diagnosis: Primary Impression: Appendicitis Condition: Stable Comments I discussed the findings with the patient. I discussed the patient with Dr Castellanos at 6:25 PM, who was made aware of the lab, the treatment, the patient condition. The patient is admitted to [facility] Disclaimer: Inadvertent spelling and grammatical errors are likely due to EHR/dictation software use and do not reflect on the overall quality of patient care. Also, please note that the electronic time recorded on this note does not necessarily reflect the actual time of the patient encounter. CARMELITA COLINDRES MD Sep 05, 2018 12:48
== END 2018-08-31 14:11 | disposition home or self-care (01) | DRG 343 ==
LOC: FTE 14:47 → PP2 18:25 → SUATTDRO 18:26
PROVIDERS: ADMIT Internal Medicine; ATTEND Internal Medicine
PROC: 0DTJ4ZZ Resection of Appendix, Percutaneous Endoscopic Approach (ICD-10-PCS; principal; 2018-08-29 20:30)
DX: K35.80 Unspecified acute appendicitis (principal); D69.6 Thrombocytopenia, unspecified; G89.18 Other acute postprocedural pain; Z72.0 Tobacco use
CPT/HCPCS: 74177; 80048; 80053; 80061; 81001; 81003; 81025; 83036; 83690; 83735; 84100; 85025; 85610; 85730; 88304; J0690; J1170; J1650; J1885; J2250; J2270; J2405; J2543; J2710; J2765; J2795; J3480; J7030; Q9967